=== PATIENT | female | born 1955 | race Caucasian/White ===

== ENCOUNTER → 2019-08-26 13:29 | Outpatient (CLI) | payer OTHER, SELFPAY ==
[2019-08-05 08:32] VITALS: BMI 30.5
[2019-09-03 10:03] LABS: Hematocrit 43.9 % (37-47); Hemoglobin 14.1 g/dL (12.0-15.0); Mean Corp Hgb Conc 32.1 g/dL (32-36); Mean Corpuscular Hgb 26.3 pg (27.0-32.0); Mean Corpuscular Volume 81.9 fL (81-99); Mean Platelet Vol. 8.8 fl (6.2-12.0); Platelet Count 302 K/mm3 (150-450); RBC Distribution Width SD 38.6 fl (35.1-43.9); Red Blood Count 5.36 M/mm3 (4.2-5.4)
[2019-09-03 10:19] LABS: ALB/GLOB Ratio 1.1 RATIO (0.9-2.4); AST(SGOT) 22 U/L (15-37); Alanine Aminotransfer ALT/SGPT 37 U/L (13-56); Alkaline Phosphatase 65 U/L (45-117); Anion Gap 7 (5-15); BUN 14 mg/dL (7-18); BUN/Creat Ratio 17.5 RATIO (10-20); Calcium,Total 9.2 mg/dL (8.5-10.1); Chloride 106 mmol/L (98-107); EST Glomerular Filtration Rate 77 mL/min (>60); Est Glom Filt Rate - Afr Amer 93 mL/min (>60); Globulin 3.7 g/dL (2.2-4.2); Glucose 117 mg/dL (74-106); Protein, Total 7.7 g/dL (6.4-8.2); Sodium Level 138 mmol/L (136-145)
== END ==
LOC: PAVLAB 13:30 → CVS 13:48
PROVIDERS: PCP Student in an Organized Health Care Education/Training Program; Referring Provider Obstetrics & Gynecology; Visit Provider Obstetrics & Gynecology
DX: R69 Illness, unspecified (principal)
CPT/HCPCS: 36415; 80053; 85027; 86850; 86900; 86901

== ENCOUNTER → 2019-09-03 15:00 | Outpatient (CLI) | payer OTHER, SELFPAY ==
[2019-08-05 08:32] VITALS: BMI 30.5
--- NOTE | 2019-08-26 13:50 | EKG12_ITS ---
Test Reason : PRE OP Blood Pressure : / mmHG Vent. Rate : 092 BPM Atrial Rate : 092 BPM P-R Int : 156 ms QRS Dur : 066 ms QT Int : 358 ms P-R-T Axes : 000 022 039 degrees QTc Int : 442 ms Normal sinus rhythm Septal infarct (cited on or before 05-MAR-2015) Abnormal ECG Confirmed by JULISA WHITMORE, LOIDA ([id number]), school photograph editor YAYA SOTO ([id number]) on 08/28/2019 1:12:53 PM Referred By: Kenya Wiggins Confirmed By:LOIDA EGAN MD
[2019-09-03 16:51] LABS: Thyroid Stim Hormone (TSH) 0.59 uIU/mL (0.358-3.74)
== END ==
LOC: PAT 10-02 11:11
PROVIDERS: Anesthesiology; PCP Student in an Organized Health Care Education/Training Program; Referring Provider Obstetrics & Gynecology; Visit Provider Obstetrics & Gynecology
DX: Z01.818 Encounter for other preprocedural examination (principal)
CPT/HCPCS: 84443; 93005

== ENCOUNTER 2023-04-06 05:39 | Observation (INO) | payer OTHER, MEDICARE, SELFPAY ==
[2023-04-06] VITALS (27 sets, daily range): BP systolic 90–193; BP diastolic 59–119; PULSE 67–126; RESP 14–20; TEMP 36.4–36.9; O2SAT 94–99; BMI 30.6; BMI 30.7
--- NOTE | 2023-04-06 06:00 | RAD_ITS ---
EXAM: XR CHEST, 1 VIEW CLINICAL INDICATION: chest pain TECHNIQUE: Frontal view of the chest. COMPARISON: Previous chest radiograph of report of 03/05/2015. FINDINGS: LUNGS AND PLEURAL SPACES: Unremarkable. No consolidation or edema. No pneumothorax. No effusion. HEART: Unremarkable. Cardiac silhouette not enlarged. Normal pulmonary vasculature. MEDIASTINUM: Central airways and mediastinal contour are unremarkable. No mediastinal widening. Trachea is midline. 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 Lower cervical degenerative changes. SOFT TISSUES: Unremarkable. RAD/Chest 1 View (Portable) IMPRESSION: No radiographic evidence of acute cardiopulmonary disease. Electronically Signed: Marco A Zhong MD at 6:55 EDT ,
--- NOTE | 2023-04-06 06:00 | EKG12_ITS ---
Test Reason : CP Blood Pressure : / mmHG Vent. Rate : 118 BPM Atrial Rate : 118 BPM P-R Int : 162 ms QRS Dur : 072 ms QT Int : 334 ms P-R-T Axes : 062 017 063 degrees QTc Int : 468 ms Sinus tachycardia Septal infarct (cited on or before 05-MAR-2015) Abnormal ECG Confirmed by JULISA WHITMORE, LOIDA ([id number]), supervising editor trailer YAYA SOTO ([id number]) on 04/10/2023 2:16:11 PM Referred By: BB Confirmed By:LOIDA EGAN MD
--- NOTE | 2023-04-06 06:00 | ED.VIS.CHEST ---
HPI History of Present Illness Chief Complaint: Chest Pain Informant: patient and spouse/S.O. Narrative Narrative: Patient woke up about 30 minutes prior to arrival without any symptoms and then suddenly shortly afterwards started having severe crushing pressure substernal chest pain without radiation, never had this before, no known history of heart disease. She feels dyspnea, she feels like her heart is racing a little bit and feels a little lightheaded, no nausea, vomiting, diaphoresis, or syncope/presyncope. She states it is severe and prior to getting here she felt like she was going to . Father had heart disease prior to the age of 55, and several other family members on his side of the family with heart disease. Patient's daughter has congestive heart failure for some reason. She is non-smoker and never had been. She states periodically every so often when she is exerting herself she gets chest discomfort and has to rest and then it goes away. She rarely seeks care when this occurs, but because of having intermittent chest discomfort she has been seeing cardiology at [facility]. CVD Risk Factors: Positive for Hypertension (Diet-treated) and Family History 1' </=55; Negative for Diabetes, Hypercholesterolemia or Smoking PE Risk Factors: Negative for Recent Travel/Surgery, Recent Immobilization or Prior DVT or PE [facility] Medical History (Updated 04/06/23 @ 08:[address] Philip Wilkins MD) Anxiety Arthritis Bladder incontinence Bladder prolapse Genital herpes Hyperlipidemia Hypothyroidism Seasonal allergies Home Medications estradiol 0.5 mg tablet 0.5 mg PO DAILY 12/09/13 [History Last Taken Unknown] medroxyprogesterone 2.5 mg tablet 2.5 mg PO DAILY 12/09/13 [History Last Taken Unknown] rosuvastatin 5 mg tablet 5 mg PO DAILY 12/09/13 [History Last Taken 04/05/23] Synthroid 88 mcg PO DAILY 08/05/19 [History Last Taken 04/05/23] acyclovir 200 mg capsule 200 mg PO TID PRN PRN 08/05/19 [History Last Taken Unknown] acyclovir 5 % topical ointment (Zovirax) 1 applic topical 6XD PRN PRN 08/05/19 [History Last Taken Unknown] celecoxib 200 mg capsule (Celebrex) 200 mg PO BID PRN Pain Or Fever 08/05/19 [History Last Taken Unknown] ibuprofen 800 mg tablet 800 mg PO Q8H PRN Pain Or Fever 08/05/19 [History Last Taken Unknown] alprazolam 0.25 mg tablet 0.25 mg PO QHS PRN sleep 04/06/23 [History Last Taken 04/05/23] azelastine 137 mcg (0.1 %) nasal spray aerosol 1 spray intranasal Q12H 04/06/23 [History Last Taken 04/05/23] epinephrine 0.3 mg/0.3 mL injection, auto-injector 0.3 mg IM Q1H PRN anaphylaxis 04/06/23 [History Last Taken Unknown] Allergy/AdvReac Type Severity Reaction Status Date / Time No Known Allergies Allergy Verified 04/06/23 06:51 Family History (Updated 08/05/19 @ 08:29 by Dipti Echavarria) Father Heart disease Prostate cancer Surgical History History of bladder suspension procedure S/P cholecystectomy S/P sinus surgery S/P tubal ligation Status post breast reduction Social History Smoking Status: Never smoker alcohol intake: current details: occasionally substance use type: does not use caffeine: Yes what type of physical activity do you participate in: walking additional social history: -Mike MOYER JOÃO ED Constitutional Constitutional ED: Denies chills or fever(s) Eyes Eyes: Denies change in vision or diplopia ENT ENT ED: Denies rhinorrhea or sore throat Cardiovascular Cardiovascular: Reports chest pain and racing heartbeat; Denies palpitations or radiating jaw, neck or arm pain Respiratory/Chest Respiratory/Chest: Reports dyspnea; Denies cough Gastrointestinal Gastrointestinal: Denies abdominal pain, diarrhea, nausea or vomiting Genitourinary Genitourinary ED: Denies dysuria or hematuria Musculoskeletal Musculoskeletal: Denies back pain or neck pain Integumentary Denies abscess or rash Neurologic Neurologic: Denies headache(s), paresthesias or weakness Psychiatric Psychiatric: Reports anxiety; Denies suicidal thoughts EXAM Physical Exam Const Vital Signs: 04/06/23 05:40 04/06/23 05:52 04/06/23 06:18 Temperature 97.5 F L Temperature Source Temporal Pulse Rate 126 H 104 H Respiratory Rate 19 H Respiratory Effort Short of Breath Blood Pressure 193/107 H 130/119 H Blood Pressure Mean 135 Pulse Ox 98 Oxygen Delivery Method Room Air 04/06/23 06:00 04/06/23 06:39 04/06/23 06:40 Temperature Temperature Source Pulse Rate 85 83 Respiratory Rate 19 H Respiratory Effort Blood Pressure 149/89 H 149/89 H Blood Pressure Mean 109 Pulse Ox 96 98 Oxygen Delivery Method Room Air Room Air 04/06/23 06:59 04/06/23 06:59 04/06/23 07:19 Temperature Temperature Source Pulse Rate 82 81 74 Respiratory Rate 17 17 Respiratory Effort Blood Pressure 115/82 H 115/82 H 115/82 H Blood Pressure Mean 93 93 Pulse Ox 97 97 Oxygen Delivery Method Room Air Room Air 04/06/23 08:26 04/06/23 09:09 04/06/23 09:29 Temperature Temperature Source Pulse Rate 82 95 77 Respiratory Rate 19 H 18 Respiratory Effort Blood Pressure 143/116 H 117/65 90/81 H Blood Pressure Mean 125 82 84 Pulse Ox 95 95 Oxygen Delivery Method Room Air Positive well nourished and well developed General Appearance ED: well developed and NAD HEENT Reports moist mucous membranes normocephalic and atraumatic Eyes PERRL and EOMs intact bilaterally Neck full ROM and supple Resp normal respiratory effort and clear to auscultation bilaterally Cardio regular rate, regular rhythm and no murmurs Rate: tachycardic GI non-tender and non-distended Auscultation: normoactive bowel sounds Palpation: soft Back/Spine no CVA tenderness General Back: other FROM Extremity normal to inspection General Extremety ED: Negative for edema, pulses abnormal or tenderness General Extremity: Negative for edema or pulses abnormal Neuro oriented x3, CN's II-XII intact bilaterally and no sensory deficits noted Sensorium / Orientation: awake and alert Motor Exam: strength 5/5 throughout Psych Mood & Affect: anxious and tearful Skin no rashes or lesions noted and no wounds Heart Score History: Highly Suspicious ECG: Significant ST-Depression Age: >/= 65 years Risk Factors: 1 or 2 Risk Factors Troponin: </= Normal Limit Score: 7 MDM MDM MDM Narrative Medical decision making narrative: Patient appears to be in a lot of discomfort and her symptoms are indeed concerning although upper GI etiologies are in the differential as are cardiac. Her EKG does look somewhat concerning, I believe there are some subtle ST depressions laterally these are new for her, and her BP is very high at 193/107. Her initial troponin came back at only 4, however this was soon after she arrived with all of this discomfort. She was initially given aspirin 324 mg in addition to nitroglycerin x2 but the nitroglycerin did not help her pain at all. This was followed by morphine, Zofran, and a GI cocktail to see if that would help while we were waiting for the second troponin. It helped a little, but she still had significant discomfort so was started on a nitroglycerin drip, and after being on that for about 10-15 minutes, her discomfort is much better down to a 1-2. Repeat EKG shows resolution of the lateral ST depressions. Her second troponin returned at 6 for a nonspecific delta of only 2. Although this argues against acute myocardial damage, I am concerned that the patient is having unstable angina, and her HEART score is 7. Discussed with hospitalist, Cardiology on page. Lab Data Attestation: I reviewed the patient's lab results. Labs: Laboratory Results - last 24 hr 04/06/23 04/06/23 05:50 07:57 WBC 8.4 RBC 5.53 H Hgb 14.6 Hct 45.6 MCV 82.5 MCH 26.4 L MCHC 32.0 RDW Std Deviation 38.6 RDW Coeff of Greg 12.8 Plt Count 378 MPV 8.9 Immature Gran % (Auto) 0.200 Neut % (Auto) 46.6 L Lymph % (Auto) 40.6 [place] % (Auto) 9.7 Eos % (Auto) 2.4 Baso % (Auto) 0.5 Absolute Neuts (auto) 3.9 Absolute Lymphs (auto) 3.40 Nucleated RBC % 0 Sodium 138 Potassium 3.8 Chloride 107 Carbon Dioxide 26.0 Anion Gap 5 BUN 10 Creatinine 0.92 Estim Creat Clear Calc 49.09 Est GFR (MDRD) Af Amer 79 Est GFR (MDRD) Non-Af 65 BUN/Creatinine Ratio 10.9 Glucose 125 H Calcium 9.6 Troponin I High Sens 4 6 Radiography Chest X-Ray - ED: 1 View, Read by ED Physician, No Acute Disease, No Infiltrates and - (narrow mediastinum) Diagnostic Testing: Clinical Impression(s) from Imaging Studies Chest X-Ray 04/06/23 06:00 IMPRESSION: No radiographic evidence of acute cardiopulmonary disease. Electronically Signed: Marco A Zhong MD at 6:55 EDT , Rhythm Strip Rhythm Strip: Sinus Tach Rate: 115 Ectopy: None EKG Initial EKG: Attestation: I personally reviewed and interpreted this EKG as follows: Interpretation: No Acute Injury Pattern, Sinus Tachycardia and Non-Specific ST Changes (With possibly less than [address] depression in V3-6, no reciprocal changes) Prior EKG tracings: available for review Prior: Changed Follow-up EKG: Attestation: I personally reviewed and interpreted this EKG as follows: Interpretation: Sinus Rhythm and No Acute Injury Pattern Comments: resolution of lateral ST abn Management Discussion w/another healthcare provider: Hospitalist and Master Automotive Glass Technician (cardiology Dr. Arias) Critical Care Time Critical Care Time: Yes Critical care time (excluding procedures): 30-74 minutes (45 min), Including time spent:, Discussing w/Patient &/or Family/Tightening Machine Operator, Discussing w/Consultants, Arranging Admission or Transfer and Performing Direct Patient Care at Bedside Discharge Plan Triage Chief Complaint: Chest Pain ED Provider: Philip Wilkins Dx/Rx/DC Orders Clinical Impression: Unstable angina Prescriptions: No Action celecoxib [Celebrex] 200 mg capsule 200 mg PO BID PRN (Reason: Pain Or Fever) acyclovir 200 mg capsule 200 mg PO TID PRN (Reason: PRN) acyclovir [Zovirax] 5 % ointment 1 applic TOPICAL 6XD PRN (Reason: PRN) ibuprofen 800 mg tablet 800 mg PO Q8H PRN (Reason: Pain Or Fever) Synthroid 75 MCG tablet 88 mcg PO DAILY Patient Comments: THYROID COND. medroxyprogesterone 2.5 MG tablet 2.5 mg PO DAILY Hold Instructions: Ordered estradiol 0.5 MG tablet 0.5 mg PO DAILY Hold Instructions: Ordered rosuvastatin 5 MG tablet 5 mg PO DAILY epinephrine 0.3 mg/0.3 mL auto-injector 0.3 mg IM Q1H PRN (Reason: anaphylaxis) azelastine 137 mcg (0.1 %) aerosol,spray 1 spray INTRANASAL Q12H alprazolam 0.25 mg tablet 0.25 mg PO QHS PRN (Reason: sleep) Primary Care Provider: Mark Vergara Referrals: Mark Vergara DO [Primary Care Provider] -
[2023-04-06 06:08] LABS: Absolute Neutrophil Count 3.9 X10^3/uL (2.0-7.7); Basophil# 0.04 X10^3/uL; Basophil% 0.5 % (0-1); Eosinophils% 2.4 % (0-5); Hematocrit 45.6 % (37-47); Hemoglobin 14.6 g/dL (12.0-15.0); Lymphocyte % 40.6 % (19-41); Mean Corpuscular Hgb 26.4 pg (27.0-32.0); Mean Corpuscular Volume 82.5 fL (81-99); Mean Platelet Vol. 8.9 fl (6.2-12.0); Monocyte# 0.81 X10^3/uL; Monocyte% 9.7 % (0-10); NRBC Flagged by Analyzer 0 % (0-5); Neutrophil % 46.6 % (47-70); Platelet Count 378 K/mm3 (150-450); RBC Distribution Width CV 12.8 % (11.6-14.6); RBC Distribution Width SD 38.6 fl (35.1-43.9); Red Blood Count 5.53 M/mm3 (4.2-5.4); White Blood Count 8.4 K/mm3 (4.4-11.0)
[2023-04-06] MEDS: Aspirin 81 MG TAB.CHEW 324 MG PO (06:15)
[2023-04-06] MEDS: 0.9% Normal Saline (1000mL) 1,000 ML 1000 ML IV (06:17)
[2023-04-06] MEDS: Nitroglycerin SL (ED/IMG/CATH) 0.4 MG TABLET SL ×3 (06:18→06:59)
[2023-04-06 06:39] LABS: Anion Gap 5 (5-15); BUN 10 mg/dL (7-18); BUN/Creat Ratio 10.9 RATIO (10-20); Calcium,Total 9.6 mg/dL (8.5-10.1); Chloride 107 mmol/L (98-107); Creatinine, Serum 0.92 mg/dL (0.55-1.02); EST Glomerular Filtration Rate 65 mL/min (>60); Est Glom Filt Rate - Afr Amer 79 mL/min (>60); Estimated Creatinine Clearance 49.09 ml/min; Glucose 125 mg/dL (74-106); Potassium 3.8 mmol/L (3.5-5.1); Sodium Level 138 mmol/L (136-145); Troponin-I HS (w/2H Reflex) 4 pg/mL (3.0-54.0)
[2023-04-06] MEDS: Morphine 4 MG/ML Syringe IV (07:14)
[2023-04-06] MEDS: Ondansetron 4 MG/2 ML Vial IV (07:14)
[2023-04-06] MEDS: Mag Hydrox/Al Hydrox/Simeth 30 ML UDC PO (07:15)
[2023-04-06 08:06] LABS: Reflex Troponin-HS? (from REC) Y
--- NOTE | 2023-04-06 08:07 | EKG12_ITS ---
Test Reason : REPEAT Blood Pressure : / mmHG Vent. Rate : 069 BPM Atrial Rate : 069 BPM P-R Int : 144 ms QRS Dur : 070 ms QT Int : 432 ms P-R-T Axes : -29 015 037 degrees QTc Int : 462 ms Normal sinus rhythm Normal ECG Confirmed by JULISA WHITMORE, LOIDA ([id number]), city editor YAYA SOTO ([id number]) on 04/10/2023 2:16:40 PM Referred By: Confirmed By:LOIDA EGAN MD
[2023-04-06] MEDS: Nitroglycerin Infusion 250 ML 3 MG CONT INF (08:26)
[2023-04-06] MEDS: Metoclopramide 10 MG/2 ML Vial 5 MG IV (08:27)
[2023-04-06] MEDS: Morphine 2 MG/ML Syringe IV (08:27)
[2023-04-06 08:37] LABS: Troponin-I HS 6 pg/mL (3.0-54.0)
--- NOTE | 2023-04-06 09:48 | PCM.HP.STD ---
HPI - General General Date of Admission: 04/06/23 Date of Service: 04/06/23 Chief Complaint: Chest pain HPI Narrative JIE AJCKSON, is a 68y/o female w/ hx of hypothyroidism and incomplete uterovaginal prolapse presented to [facility] 04/06/2023 with crushing substernal chest heaviness and blood pressure 190s. Her troponin was negative however she had lateral depressions on her EKG and her pain and EKG changes improved with a nitro drip. Heart score of 7 and she is continued on nitro drip and started on heparin drip and given a full dose aspirin and hospitalist called for admission. Patient seen at bedside with , reportedly she got up this morning and if she began to walk to the bathroom she experienced 10 out of 10 chest pressure across the front of her chest prompting her to immediately come to the ED, did not radiate anywhere else. Reports she does occasionally get chest pain on exertion and described it as her anginal pain but reportedly had a stress test about a year ago that was negative and her last heart cath was about 10 years ago. Her pain improved to a 2 after nitro drip was started. Reports leaning forward/sitting up sometimes makes her pain worse right now but denies other association. Before the nitro drip she was feeling nauseous and had 1 episode of vomiting and has been short of breath. Reports overall she has been in her usual health but then did say she has been having more gas and heartburn. Denies any swelling, at present not short of breath and feeling much better while nitro drip is running. [facility] Medical History (Updated 04/06/23 @ 09:[address] Nataliya Jin MD) Anxiety Arthritis Bladder incontinence Bladder prolapse Genital herpes Hyperlipidemia Hypothyroidism Seasonal allergies Home Medications estradiol 0.5 mg tablet 0.5 mg PO DAILY 12/09/13 [History Last Taken Unknown] medroxyprogesterone 2.5 mg tablet 2.5 mg PO DAILY 12/09/13 [History Last Taken Unknown] rosuvastatin 5 mg tablet 5 mg PO DAILY 12/09/13 [History Last Taken 04/05/23] Synthroid 88 mcg PO DAILY 08/05/19 [History Last Taken 04/05/23] acyclovir 200 mg capsule 200 mg PO TID PRN PRN 08/05/19 [History Last Taken Unknown] acyclovir 5 % topical ointment (Zovirax) 1 applic topical 6XD PRN PRN 08/05/19 [History Last Taken Unknown] celecoxib 200 mg capsule (Celebrex) 200 mg PO BID PRN Pain Or Fever 08/05/19 [History Last Taken Unknown] ibuprofen 800 mg tablet 800 mg PO Q8H PRN Pain Or Fever 08/05/19 [History Last Taken Unknown] alprazolam 0.25 mg tablet 0.25 mg PO QHS PRN sleep 04/06/23 [History Last Taken 04/05/23] azelastine 137 mcg (0.1 %) nasal spray aerosol 1 spray intranasal Q12H 04/06/23 [History Last Taken 04/05/23] epinephrine 0.3 mg/0.3 mL injection, auto-injector 0.3 mg IM Q1H PRN anaphylaxis 04/06/23 [History Last Taken Unknown] Allergy/AdvReac Type Severity Reaction Status Date / Time No Known Allergies Allergy Verified 04/06/23 06:51 Family History (Updated 08/05/19 @ 08:29 by Dipti Echavarria) Father Heart disease Prostate cancer Surgical History History of bladder suspension procedure S/P cholecystectomy S/P sinus surgery S/P tubal ligation Status post breast reduction Social History Smoking Status: Never smoker alcohol intake: current details: occasionally substance use type: does not use caffeine: Yes what type of physical activity do you participate in: walking additional social history: -Mike JOÃO MOYER Narrative General: Denies fever/chills HENT: Denies headache, denies stuffy nose, denies sore throat EYES: Denies changes in vision Resp: Denies cough, shortness of breath improved Cardiac: Substernal chest pressure improving GI: Denies abdominal pain, denies changes in bowel, had episode of vomiting and some nausea which is improving : Denies changes in urination Extremity: Denies swelling MSK: Denies weakness Neuro: Denies any numbness/tingling Heme: Denies any bleeding or bruising Skin: Denies rashes Psychiatric: No complaints voiced Vital Signs Vital Signs Vital Signs: 04/06/23 05:40 04/06/23 05:52 04/06/23 06:18 Temperature 97.5 F L Temperature Source Temporal Pulse Rate 126 H 104 H Respiratory Rate 19 H Respiratory Effort Short of Breath Blood Pressure 193/107 H 130/119 H Blood Pressure Mean 135 Pulse Ox 98 Oxygen Delivery Method Room Air 04/06/23 06:00 04/06/23 06:39 04/06/23 06:40 Temperature Temperature Source Pulse Rate 85 83 Respiratory Rate 19 H Respiratory Effort Blood Pressure 149/89 H 149/89 H Blood Pressure Mean 109 Pulse Ox 96 98 Oxygen Delivery Method Room Air Room Air 04/06/23 06:59 04/06/23 06:59 04/06/23 07:19 Temperature Temperature Source Pulse Rate 82 81 74 Respiratory Rate 17 17 Respiratory Effort Blood Pressure 115/82 H 115/82 H 115/82 H Blood Pressure Mean 93 93 Pulse Ox 97 97 Oxygen Delivery Method Room Air Room Air 04/06/23 08:26 04/06/23 09:09 04/06/23 09:29 Temperature Temperature Source Pulse Rate 82 95 77 Respiratory Rate 19 H 18 Respiratory Effort Blood Pressure 143/116 H 117/65 90/81 H Blood Pressure Mean 125 82 84 Pulse Ox 95 95 Oxygen Delivery Method Room Air Weight Weight: 78.4 kg Body Mass Index (BMI) 30.6 Physical Exam Narrative General: Alert, oriented, no apparent distress HEENT: Atraumatic, normocephalic Eyes: Anicteric, normal conjunctiva, extraocular movements grossly intact Neck: Supple Respiratory: Clear to auscultation bilaterally, normal respiratory effort Cardiovascular: Regular rate and rhythm GI: Soft, nontender, nondistended Extremities: No edema Musculoskeletal: Moving all extremities Neuro: No overt focal neurological deficits Skin: No rashes appreciated Psych: Cooperative Results Lab / Micro Data 04/06/23 05:50 04/06/23 05:50 Labs: Laboratory Results - last 24 hr 04/06/23 05:50: WBC 8.4, RBC 5.53 H, Hgb 14.6, Hct 45.6, MCV 82.5, MCH 26.4 L, MCHC 32.0, RDW Std Deviation 38.6, RDW Coeff of Greg 12.8, Plt Count 378, MPV 8.9, Immature Gran % (Auto) 0.200, Neut % (Auto) 46.6 L, Lymph % (Auto) 40.6, [place]cculloch % (Auto) 9.7, Eos % (Auto) 2.4, Baso % (Auto) 0.5, Absolute Neuts (auto) 3.9, Absolute Lymphs (auto) 3.40, Nucleated RBC % 0, Sodium 138, Potassium 3.8, Chloride 107, Carbon Dioxide 26.0, Anion Gap 5, BUN 10, Creatinine 0.92, Estim Creat Clear Calc 49.09, Est GFR (MDRD) Af Amer 79, Est GFR (MDRD) Non-Af 65, BUN/Creatinine Ratio 10.9, Glucose 125 H, Calcium 9.6, Troponin I High Sens 4 04/06/23 07:57: Troponin I High Sens 6 Rhythm Strip Rhythm Strip: Sinus Tach Rate: 115 Ectopy: None Radiology Impression Chest X-Ray 04/06/23 06:00 IMPRESSION: No radiographic evidence of acute cardiopulmonary disease. Electronically Signed: Marco A Zhong MD at 6:55 EDT , Assessment & Plan Assessment/Plan (1) Chest pain: (2) Hypothyroidism: PLAN: Plan #Concern for unstable angina -Had EKG changes with depressions though troponin of 4 and repeat only 6 -Heart score of 7 -Chest pain and EKG changes improved significantly with nitro drip -Started on heparin drip -Continue nitro and heparin and consult cardiology -Patient already loaded with aspirin -N.p.o. in the event she needs intervention -Order echocardiogram -Discussed with cardiology, patient to go to Spinal Surgeon #Hypothyroidism -Continue Synthroid #DVT ppx: Heparin drip Nataliya Jin MD Time spent in the patient's overall evaluation,decision-making process, review of diagnostic data, adjustment of management, discussion with other providers, nursing nursing and ancillary staff involved in patient's care documentation, 60 Minutes Charges/Coding Visit Charges Inpatient E&M: 74796 Init Hosp L2
--- NOTE | 2023-04-06 09:59 | ED.RN ---
As heparin was about to be started, this RN saw an order from Dr. Arias to discontinue anticoagulants but the order gives no detail about what time to stop it. Dr. Jin contact via backline to clarify order.
[2023-04-06 10:03] LABS: International Normalized Ratio 1.2; Partial Thromboplast Time 23.5 Seconds (24.1-36.2); Prothrombin Time (Protime)PT. 14.8 SECONDS (11.7-14.9)
[2023-04-06] MEDS: 0.9% Normal Saline (500mL Bag) 500 ML 999 ML IV (10:05)
--- NOTE | 2023-04-06 10:31 | CASEMGMT ---
Insurance review for hospitals In-network with MMO insurance if transfer is recommended is as follows:. [facility], [place], [facility], [facility], [facility], [facility], [facility]), and . Flavia Hawkins, Discharge Planning Asst.
--- NOTE | 2023-04-06 10:44 | ECHOD_ITS ---
Reason For Study: CHEST PAIN Procedure This was a 2D Doppler, Color Flow transthoracic echocardiogram. Exam performed portable in patient room. Left Ventricle Normal left ventricle. Left ventricular systolic function is hyperdynamic. The estimated ejection fraction is 70 %. No regional wall motion abnormalities noted. Right Ventricle Normal RV size. Normal systolic function. Atria Normal left atrium. Normal right atrium. Mitral Valve Normal mitral valve. Tricuspid Valve Normal tricuspid valve. Aortic Valve Normal aortic valve. Trisinus/trileaflet aortic valve. Pulmonic Valve Normal pulmonic valve. Great Vessels Normal aortic root. The pulmonary artery is normal size. Normal inferior vena cava. Pericardium/Pleural No pericardial effusion. MMode/2D Measurements & Calculations LVIDd: 3.8 cm IVSd: 1.0 cm Ao root diam: 3.1 cm LVIDs: 2.2 cm LVPWd: 1.5 cm FS: 42.4 % LAV(MOD-sp4): 35.6 ml LVAd ap4: 23.0 cm2 SV(MOD-sp4): 40.4 ml LVLd ap4: 7.0 cm EDV(MOD-sp4): 62.5 ml EDV(sp4-el): 64.8 ml LVAs ap4: 11.7 cm2 LVLs ap4: 5.8 cm ESV(MOD-sp4): 22.1 ml ESV(sp4-el): 20.2 ml EF(MOD-sp4): 64.7 % EF(sp4-el): 68.9 % SV(sp4-el): 44.7 ml LA A4 area: 15.0 cm2 LA dimension(2D): 2.4 cm RA A4 area: 10.1 cm2 TAPSE: 2.6 cm Time Measurements MV dec time: 0.26 sec Doppler Measurements & Calculations MV E max mateus: 70.4 cm/sec Lat Peak E' Mateus: 8.5 cm/sec Med Peak E' Mateus: 7.2 cm/sec MV A max mateus: 66.1 cm/sec E/E' lat: 8.3 E/E' med: 9.8 MV E/A: 1.1 MV V2 max: 103.9 cm/sec Ao V2 max: 105.9 cm/sec MV max P.3 mmHg MV dec slope: 266.9 cm/sec2 Ao max P.5 mmHg MV V2 mean: 68.3 cm/sec Ao V2 mean: 79.3 cm/sec MV mean P.0 mmHg Ao mean P.8 mmHg MV V2 VTI: 31.4 cm Ao V2 VTI: 27.7 cm AV (velocity ratio): 0.88 LV V1 max: 92.8 cm/sec LV V1 max P.4 mmHg LV V1 mean P.0 mmHg LV V1 mean: 68.7 cm/sec LV V1 VTI: 24.4 cm ECHO/Echo Complete Interpretation Summary Normal left ventricle. Left ventricular systolic function is hyperdynamic. The estimated ejection fraction is 70 %. Structurally normal valves. Ordering Physician: Nataliya Jin Referring Physician: ERICA STRONG Performed By: Mary Gutierrez RCS
--- NOTE | 2023-04-06 13:35 | CON.PCM.CA_ITS ---
Assessment & Plan Assessment/Plan (1) Chest pain: PLAN: She presents with chest discomfort which appears to be suggestive of angina. At this time I recommended that we perform an urgent cardiac catheterization. The risk benefits alternatives were explained to her and she agreed at to proceed. Cardiac catheterization performed today demonstrated normal coronary arteries and preserved left ventricular systolic function. It appears the above was likely secondary to elevated blood pressure. I would recommend starting her on amlodipine 5 mg a day she will follow-up with her primary care physician and this can be titrated as appropriate. (2) HTN (hypertension), benign: PLAN: She has uncontrolled hypertension. I would recommend we continue her on the current medical therapy as started. Thank you for allowing me to participate in the care of your patient. Please don't hesitate to call if any issues arise. HPI Consult Data Date of Consult: 04/06/23 HPI Narrative HPI Narrative: SHANTELL JACKSON, is a 68 F who presents with chest discomfort to [facility] 04/06/2023 with crushing substernal chest heaviness and blood pressure 190s. Her troponin was negative however she had lateral depressions on her EKG and her pain and EKG changes improved with a nitro drip. She said that she had just woken from bed and stepped out and started having this discomfort. She also had some nausea and vomiting and then heartburn. She has had a previous cholecystectomy. She has had no dizziness or diaphoresis no near syncope or syncope. In the emergency room she was evaluated cardiac troponin enzymes were noted to be normal but it was felt that with her elevated heart score she should be admitted for further evaluation and management. Cardiology was called for further evaluation. [facility] Medical History (Updated 04/06/23 @ 13:[address] Omero Arias MD) Anxiety Arthritis Bladder incontinence Bladder prolapse Genital herpes Hyperlipidemia Hypothyroidism Seasonal allergies Home Medications estradiol 0.5 mg tablet 0.5 mg PO DAILY 12/09/13 [History Last Taken Unknown] medroxyprogesterone 2.5 mg tablet 2.5 mg PO DAILY 12/09/13 [History Last Taken Unknown] rosuvastatin 5 mg tablet 5 mg PO DAILY 12/09/13 [History Last Taken 04/05/23] Synthroid 88 mcg PO DAILY 08/05/19 [History Last Taken 04/05/23] acyclovir 200 mg capsule 200 mg PO TID PRN PRN 08/05/19 [History Last Taken Unknown] acyclovir 5 % topical ointment (Zovirax) 1 applic topical 6XD PRN PRN 08/05/19 [History Last Taken Unknown] celecoxib 200 mg capsule (Celebrex) 200 mg PO BID PRN Pain Or Fever 08/05/19 [History Last Taken Unknown] ibuprofen 800 mg tablet 800 mg PO Q8H PRN Pain Or Fever 08/05/19 [History Last Taken Unknown] alprazolam 0.25 mg tablet 0.25 mg PO QHS PRN sleep 04/06/23 [History Last Taken 04/05/23] azelastine 137 mcg (0.1 %) nasal spray aerosol 1 spray intranasal Q12H 04/06/23 [History Last Taken 04/05/23] epinephrine 0.3 mg/0.3 mL injection, auto-injector 0.3 mg IM Q1H PRN anaphylaxis 04/06/23 [History Last Taken Unknown] Allergy/AdvReac Type Severity Reaction Status Date / Time No Known Allergies Allergy Verified 04/06/23 06:51 Family History Father Heart disease Prostate cancer Surgical History History of bladder suspension procedure S/P cholecystectomy S/P sinus surgery S/P tubal ligation Status post breast reduction Social History Smoking Status: Never smoker alcohol intake: current details: occasionally substance use type: does not use caffeine: Yes what type of physical activity do you participate in: walking additional social history: -Mike ROS Constitutional Constitutional: Denies fever(s) or weight loss Eyes Eyes: Reports systems reviewed and no addt'l complaints, except as documented ENT HEENT: Reports systems reviewed and no addt'l complaints, except as documented Cardiovascular Cardiovascular: Denies chest pain at rest, chest pain with activity, dyspnea at rest, dyspnea on exertion, edema, palpitations or paroxysmal nocturnal dyspnea Respiratory/Chest Respiratory/Chest: Denies dyspnea on exertion, productive cough, shortness of breath at rest or shortness of breath with exertion Gastrointestinal Gastrointestinal: Denies change in bowel habits, nausea, vomiting or weight changes Genitourinary Genitourinary: Denies difficulty urinating Musculoskeletal Musculoskeletal: Denies joint stiffness or muscle weakness Integumentary Integumentary: Denies lesions Neurologic Neurologic: Denies dizziness or syncope Psychiatric Psychiatric: Denies anxiety Endocrine Endocrinology: Denies excessive sweating or fatigue Hematologic/Lymphatic Hematologic/Lymphatic: Denies anemia Allergic/Immunologic Allergic/Immunologic: Denies seasonal rhinorrhea Physical Exam Const alert, oriented x3 and no apparent distress General Appearance: cooperative HEENT hearing grossly normal bilaterally Head and Scalp: atraumatic Eyes EOMs intact bilaterally Neck General: normal visual inspection Chest inspection of chest normal and palpation of chest normal Resp normal respiratory effort Auscultation: clear to auscultation bilaterally Cardio regular rate, regular rhythm, S1 normal heart sound and S2 normal heart sound Jugular Venous Distention: JVD GI normal to inspection, nondistended, normoactive bowel sounds Extremity normal capillary refill and no pedal edema Peripheral Pulses: Yes pulses 2+ throughout and femoral pulses present Skin no rashes or lesions noted Neuro oriented x3 and CN's II-XII intact bilaterally Psych Appearance: grossly normal and appropriate Risk Stratification Risk Stratification Applicable: Yes Age >/= 65: Yes >/= 3 CAD Risk Factors (HTN, HLD, DM, family hx of CAD, or current smoker): No Aspirin Use in the Past 7 Days: No Severe Angina (>/= episodes in 24 hours): Yes EKG ST Changes >/= 0.5mm: No Positive Cardiac Marker: No LIAN Risk Stratification Score: 2 LIAN % Risk: 8% Risk Objective Data Vital Signs: Vital Signs Temp Pulse Resp BP Pulse Ox O2 Del Method 97.5 F L 80 20 H 123/69 H 96 Room Air 04/06/23 05:40 04/06/23 11:45 04/06/23 11:45 04/06/23 12:30 04/06/23 11:45 04/06/23 11:45 Oxygen Delivery Method Room Air Weight: 168 lb 3.403 oz Body Mass Index (BMI) 30.7 Intake & Output: Intake and Output for Last 24 Hours 04/04/23 04/05/23 04/06/23 23:59 23:59 23:59 Intake Total 1516.70 / 1516.70 Balance 1516.70 / 1516.70 Lab / Micro Data 04/06/23 05:50 04/06/23 05:50 Labs: Laboratory Results - last 24 hr 04/06/23 05:50: WBC 8.4, RBC 5.53 H, Hgb 14.6, Hct 45.6, MCV 82.5, MCH 26.4 L, MCHC 32.0, RDW Std Deviation 38.6, RDW Coeff of Greg 12.8, Plt Count 378, MPV 8.9, Immature Gran % (Auto) 0.200, Neut % (Auto) 46.6 L, Lymph % (Auto) 40.6, [place] % (Auto) 9.7, Eos % (Auto) 2.4, Baso % (Auto) 0.5, Absolute Neuts (auto) 3.9, Absolute Lymphs (auto) 3.40, Nucleated RBC % 0, Sodium 138, Potassium 3.8, Chloride 107, Carbon Dioxide 26.0, Anion Gap 5, BUN 10, Creatinine 0.92, Estim Creat Clear Calc 49.09, Est GFR (MDRD) Af Amer 79, Est GFR (MDRD) Non-Af 65, BUN/Creatinine Ratio 10.9, Glucose 125 H, Calcium 9.6, Troponin I High Sens 4 04/06/23 07:57: Troponin I High Sens 6 04/06/23 09:42: PT 14.8, INR 1.2, APTT 23.5 L Rhythm Strip Rhythm Strip: Sinus Tach Rate: 115 Ectopy: None Cardiology Labs/Tests 04/06/23 05:50: WBC 8.4, RBC 5.53 H, Hgb 14.6, Hct 45.6, MCV 82.5, MCH 26.4 L, MCHC 32.0, Plt Count 378, MPV 8.9, Immature Gran % (Auto) 0.200, Neut % (Auto) 46.6 L, Lymph % (Auto) 40.6, [place] % (Auto) 9.7, Eos % (Auto) 2.4, Baso % (Auto) 0.5, Absolute Neuts (auto) 3.9, Nucleated RBC % 0, Sodium 138, Potassium 3.8, Chloride 107, Carbon Dioxide 26.0, Anion Gap 5, BUN 10, Creatinine 0.92, Est GFR (MDRD) Af Amer 79, Est GFR (MDRD) Non-Af 65, BUN/Creatinine Ratio 10.9, Glucose 125 H, Calcium 9.6 04/06/23 09:42: PT 14.8, INR 1.2, APTT 23.5 L Rhythm: EKG: ECHO: Stress Test: Cardiac Cath: PCI: CT Surgery: Holter monitor: EPS: PPM: CXR: Chest CT Scan: Radiography Diagnostic Testing: Radiology Impression Chest X-Ray 04/06/23 06:00 IMPRESSION: No radiographic evidence of acute cardiopulmonary disease. Electronically Signed: Maroc A Zhong MD at 6:55 EDT ,
--- NOTE | 2023-04-06 14:19 | NURSING ---
Pt returned from [facility] at 1340 with nirto gtt off pt.
--- NOTE | 2023-04-06 14:53 | CT_ITS ---
HISTORY: Refractory 04/04 chest pain, r/o dissection or other. TECHNIQUE: CT angiogram of the chest was performed after the intravenous administration of 100 mL Isovue-370. Post-processing of the angiographic images was performed with multiplanar reformation and 3D reconstruction. Individualized dose optimization techniques were used for this CT. 1078 images. COMPARISON: XR same day. FINDINGS: CENTRAL AIRWAYS: Patent. LUNGS: 2 mm left lower lobe nodule. 4 mm pleural-based right lower lobe nodule. PLEURA: No pneumothorax or significant pleural effusion. HEART/PERICARDIUM: Heart within normal limits in size. No pericardial effusion. PULMONARY ARTERIES: No filling defect. AORTA/VESSELS: No thoracic aortic aneurysm or dissection flap. MEDIASTINUM/MINNIE: No pathologically enlarged lymph nodes. OSSEOUS STRUCTURES: Intact. UPPER ABDOMEN: Unremarkable. CT/CTA Chest W/WO Contrast IMPRESSION: No evidence of pulmonary embolism, aortic dissection, or thoracic aortic aneurysm. 2 to 4 mm lower lobe pulmonary nodules; consider 12 month follow-up depending on risk factors. Electronically Signed: Angle Duron MD at 15:41 EDT ,
[2023-04-06] MEDS: Pantoprazole Sodium 40 MG Tablet PO (15:03)
[2023-04-06] MEDS: amLODIPine 5 MG Tablet PO (15:03)
--- NOTE | 2023-04-06 16:03 | PCM.DC ---
Discharge Instructions Diet Discharge Diet: Light diet - advance as tolerated Follow Up Care Test Results: Test results from this visit will be discussed in further detail at your follow-up appointment, if applicable. Discharge Plan Admission Admit Date/Time: 04/06/23 10:11 Primary Reason for Your Visit: Chest pain Attending Provider: Nataliya Jin Primary Care Provider: Mark Vergara Consulting Providers: Omero Arias Instructions Patient Instructions: ED GERD (Adult) Additional Instructions / Restrictions: DISCHARGE INSTRUCTIONS PLEASE READ *Please take this with you to your next doctors appointment* -You will be discharged on Protonix 40 mg daily for acid reflux, please follow-up with your GI doctor on discharge -Recommend avoiding any aspirin, ibuprofen, other NSAIDs at this time as these can worsen reflux. -You will be discharged on 5 mg of Norvasc for blood pressure -Check your incisions every day for signs of infection which would include redness, swelling, leaking. It is normal to have a small bruise or bump where the catheter was placed but a bruise that is getting larger is not normal. Please tell your healthcare team about this. Please proceed to the emergency department if you have uncontrollable bleeding from the site. -Okay to shower from the day after your heart catheterization but keep your incision site clean and dry. -You are noted to have small lung nodules, your primary provider can consider a 12-month follow-up -Please call your primary care provider's office upon discharge to schedule a hospital follow up within 1 week. -For any concerning signs or symptoms please call 911 or proceed to the nearest emergency department Discharge Orders/Prescriptions Prescriptions: New amlodipine 5 mg Tablet 5 mg PO DAILY 30 Days Qty: 30 0RF pantoprazole 40 mg Tablet,Delayed Release (Dr/Ec) 40 mg PO DAILY 30 Days Qty: 30 0RF Continued acyclovir 200 mg capsule 200 mg PO TID PRN (Reason: PRN) acyclovir [Zovirax] 5 % ointment 1 applic TOPICAL 6XD PRN (Reason: PRN) Synthroid 75 MCG tablet 88 mcg PO DAILY Patient Comments: THYROID COND. rosuvastatin 5 MG tablet 5 mg PO DAILY epinephrine 0.3 mg/0.3 mL auto-injector 0.3 mg IM Q1H PRN (Reason: anaphylaxis) azelastine 137 mcg (0.1 %) aerosol,spray 1 spray INTRANASAL Q12H alprazolam 0.25 mg tablet 0.25 mg PO QHS PRN (Reason: sleep) Held celecoxib [Celebrex] 200 mg capsule 200 mg PO BID PRN (Reason: Pain Or Fever) Hold Instructions: Resume on 04/12/23. Discontinued ibuprofen 800 mg tablet 800 mg PO Q8H PRN (Reason: Pain Or Fever) medroxyprogesterone 2.5 MG tablet 2.5 mg PO DAILY Hold Instructions: MD Ordered estradiol 0.5 MG tablet 0.5 mg PO DAILY Hold Instructions: MD Ordered Referrals / Follow Up: Mark Vergara DO [Primary Care Provider] - Within 1 Week Disposition Disposition (needs filled in before D/C Order can be placed): Home, Self Care
--- NOTE | 2023-04-06 16:16 | PCM.HOSP.N ---
Hospitalist Note Patient was admitted for concern for unstable angina, underwent heart cath which did not reveal any lesions requiring intervention. Echocardiogram overall unremarkable, due to improved but continued chest pain she had CTA which was unrevealing. She is seen and reports she feels 100% better than this morning. Discussed that this may be esophageal in nature either GERD or spasm and she concurred. Has been told before after an upper endoscopy that she had GERD and took reflux medicine only as needed, discussed taking PPI daily and following up with her GI doctor and she was amenable to this plan as she is feeling much better. Has no other complaints, questions of patient and family members at bedside answered. Patient discharged home in stable condition
--- NOTE | 2023-04-06 16:42 | CL.D_ITS ---
Patient Name: SHANTELL JACKSON Study Date: 04/06/2023 Performing: Omero Arias MD Ht: 63 inches 160.02 cm : 1955 Wt: 168.4 lbs 76.3 kg Age: 68 Gender: female BSA: 1.8 PROCEDURE(S) PERFORMED [id number])LHC/COR/LV CLINICAL PROFILE AND INDICATIONS Indications: Suspected CAD Heart Failure: None Stress/Imaging Stress/Image Study Performed: No CONCLUSIONS Normal coronary arteries Normal LV size, wall motion,and systolic function RECOMMENDATIONS Medical therapy DESCRIPTION OF PROCEDURE The patient arrived to the procedure lab. The risks and benefits of the procedure as well as a full description of our services here and current unavailability of surgical backup were fully explained to the patient and/or their significant other prior to the catheterization. The Timeout was completed, verifying the correct patient and procedure. The patient's procedural site was prepped and draped in the usual fashion. Local anesthetic was given subcutaneously to right radial region with Lidocaine 2%. Using a modified Seldinger technique, arterial access was obtained via the right radial artery, a 6Fr sheath was inserted. Left Coronary Artery selective angiography was performed in multiple views using a 5 Fr. 4.0 [place] catheter. Right Coronary Artery selective angiography was then performed in multiple views using a 5 Fr. 4.0 [place] catheter. Left Ventriculography was performed in TREVINO projection using a 5 Fr. Pigtail catheter. LV to AO pullback pressures were then recorded.The arterial sheath was pulled and a TR Band was applied for hemostasis CORONARY ANGIOGRAPHY DOMINANCE: Right Dominant LEFT HEART ASSESSMENT Left Ventricular Ejection Fraction: by LV Gram 60 % Normal LV wall motion Normal Left Ventricular systolic function Normal Left Ventricular systolic function LEFT MAIN: Angiographically normal LEFT ANTERIOR DESCENDING ARTERY: Angiographically normal CIRCUMFLEX ARTERY: Angiographically normal RIGHT CORONARY ARTERY: Angiographically normal COMPLICATIONS No Complications PROCEDURE MEDICATIONS Versed 1 mg IV Fentanyl 50 mcg IV Oxygen: 2 L/min via nasal cannula Heparin given IA 04/06/2023 13:03:05 Verapamil 2.5mg, 3000 units of Heparin given IA 04/06/2023 13:03:05 SUMMARY OF HEMODYNAMIC DATA Time AIR REST ECG 12:47:14 Art 120/55 (76) 13:07:01 AO 129/67 (94) SA 13:11:22 LV 113/5, 14 13:15:31 LV 119/4, 12 13:15:37 LV 114/4, 12 13:16:04 LVp 115/3, 12 13:16:08 AOp 112/0 (80) 13:16:13 Signed By Omero Arias MD On 04/06/2023 16:41:33 Omero Arias MD
[2023-04-06] MEDS: Acetaminophen 325 MG Tablet 650 MG PO (16:47)
== END 2023-04-06 17:38 | disposition home or self-care (01) | DRG 392 ==
LOC: ED 08:01 → PCU 10:12
PROVIDERS: Admitting Provider Internal Medicine; Emergency Provider Emergency Medicine; PCP Student in an Organized Health Care Education/Training Program; Visit Provider Internal Medicine
DX: R07.89 Other chest pain (principal); K21.9 Gastro-esophageal reflux disease without esophagitis; E03.9 Hypothyroidism, unspecified; I10 Essential (primary) hypertension; E78.5 Hyperlipidemia, unspecified; Z79.890 Hormone replacement therapy; Z79.899 Other long term (current) drug therapy; R06.02 Shortness of breath
CPT/HCPCS: 71045; 71275; 80048; 84484; 85025; 85610; 85730; 93005; 93306; 93458; 96361; 96365; 96366; 96375; 96376; 99152; 99153; 99221; 99284; J7030; J7040; Q9967; A4216; C1769; C1894; G0378; J2405

== ENCOUNTER 2024-03-21 14:01 | Emergency (ER) | payer MEDICARE, SELFPAY ==
[2024-03-21 14:02] VITALS: BP 145/79; PULSE 75; RESP 16; TEMP 36.6; O2SAT 96; BMI 30.2
--- NOTE | 2024-03-21 14:19 | CT_ITS ---
EXAM: CT ABDOMEN AND PELVIS WITH INTRAVENOUS CONTRAST CLINICAL INDICATION: pain TECHNIQUE: Helically acquired images were obtained of the abdomen and pelvis with intravenous contrast. This CT exam was performed using one or more of the following dose reduction techniques: automated exposure control, adjustment of the mA and/or kV according to patient size, and/or use of iterative reconstruction technique. CONTRAST: IV 100mL Isovue-300 COMPARISON: No relevant prior studies available. FINDINGS: LOWER THORAX: Normal. Lung bases are clear. No cardiomegaly. No pericardial effusion. ABDOMEN: LIVER: Mild hepatic steatosis. GALLBLADDER AND BILE DUCTS: Cholecystectomy noted. Prominence of the common bile duct within the range of normal for postcholecystectomy patient. PANCREAS: Normal. No focal cystic or solid mass. SPLEEN: Normal. Normal size without focal cystic or solid mass. ADRENALS: Normal. No nodules. KIDNEYS AND URETERS: 2.5 cm simple appearing right renal cyst. No specific follow-up indicated. Normal renal size and position. No hydronephrosis. STOMACH AND BOWEL: Diverticulosis of the colon noted without evidence of acute diverticulitis. PELVIS: APPENDIX: Appendix is visualized and normal in appearance. BLADDER: Normal. REPRODUCTIVE: Hysterectomy noted. ABDOMEN and PELVIS: INTRAPERITONEAL SPACE: Normal. No ascites or other fluid collection. No free air. BONES/JOINTS: No suspicious lytic or blastic abnormality. SOFT TISSUES: Small fat-containing umbilical hernia is present. VASCULATURE: Normal. Abdominal aorta is non-dilated. LYMPH NODES: Normal. No enlarged lymph nodes. CT/Abdomen/Pelvis W IV Cont ONLY IMPRESSION: 1. Mild steatosis. 2. Diverticulosis coli. Electronically Signed: Scott Hines MD at 15:34 EDT ,
--- NOTE | 2024-03-21 14:24 | ED.VIS.GI ---
HPI HPI - GI History of Present Illness Chief Complaint: Abd Pain Informant: patient and spouse/S.O. Narrative Narrative: Increased abdominal pain over 3 days. States have bloating extensive gas. She has been using Gas-X. First day had 1 emesis that came right back down. Pain has continued. Today had diarrhea nonbloody. Cholecystectomy [address] Campbell. She had hysterectomy with a bladder lift April 2023 through [facility]. She has had a bowel obstruction years ago. Denies fever or chills. Denies urinary symptoms. History of pancreatitis. Denies any extensive alcohol. She was seen by her primary care office and sent here for evaluation. [facility] Medical History Anxiety Bladder prolapse Bladder incontinence Seasonal allergies Genital herpes Arthritis Hypothyroidism Hyperlipidemia Home Medications ?Medication ?Instructions ?Recorded ?Last Taken ?Type rosuvastatin 5 mg tablet 5 mg PO DAILY 12/09/13 04/05/23 History Synthroid 88 mcg PO DAILY 08/05/19 04/05/23 History acyclovir 200 mg capsule 200 mg PO TID PRN PRN 08/05/19 Unknown History acyclovir 5 % topical ointment 1 applic topical 6XD PRN PRN 08/05/19 Unknown History (Zovirax) celecoxib 200 mg capsule (Celebrex) 200 mg PO BID PRN Pain Or Fever 08/05/19 Unknown History alprazolam 0.25 mg tablet 0.25 mg PO QHS PRN sleep 04/06/23 04/05/23 History amlodipine 5 mg tablet 5 mg PO DAILY 30 days #30 tabs 04/06/23 Unknown Rx azelastine 137 mcg (0.1 %) nasal 1 spray intranasal Q12H 04/06/23 04/05/23 History spray epinephrine 0.3 mg/0.3 mL 0.3 mg IM Q1H PRN anaphylaxis 04/06/23 Unknown History injection, auto-injector pantoprazole 40 mg tablet,delayed 40 mg PO DAILY 30 days #30 tabs 04/06/23 Unknown Rx release hyoscyamine sulfate 0.125 mg 0.125 mg PO Q8H PRN abdominal pain 03/21/24 Unknown Rx tablet (Levsin) #20 tabs ondansetron 4 mg disintegrating 4 mg PO Q8H PRN PRN Nausea #10 tabs 03/21/24 Unknown Rx tablet Allergy/AdvReac Type Severity Reaction Status Date / Time No Known Allergies Allergy Verified 03/21/24 14:05 Family History Father Heart disease Prostate cancer Surgical History History of bladder suspension procedure S/P cholecystectomy Status post breast reduction S/P tubal ligation S/P sinus surgery Social History Smoking Status: Never smoker alcohol intake: current details: occasionally substance use type: does not use caffeine: Yes what type of physical activity do you participate in: walking additional social history: -[facility] ED Constitutional Constitutional ED: Denies chills, fever(s) or sweats Eyes Eyes: Denies change in vision ENT ENT ED: Denies dysphagia or sore throat Cardiovascular Cardiovascular: Denies chest pain, leg edema, palpitations or racing heartbeat Respiratory/Chest Respiratory/Chest: Denies cough, dyspnea or dyspnea on exertion Gastrointestinal Gastrointestinal: Reports abdominal pain, diarrhea and nausea; Denies vomiting Genitourinary Genitourinary ED: Denies dysuria, hematuria or urinary frequency Musculoskeletal Musculoskeletal: Denies back pain, extremity pain or neck pain Integumentary Denies rash or wounds Neurologic Neurologic: Denies headache(s), paresthesias or weakness EXAM Physical Exam Const Vital Signs: 03/21/24 14:02 Temperature 98 F Temperature Source Oral Pulse Rate 75 Respiratory Rate 16 Blood Pressure 145/79 H Blood Pressure Mean 101 Pulse Ox 96 Oxygen Delivery Method Room Air Positive well nourished and well developed General Appearance ED: well developed and NAD HEENT Reports moist mucous membranes normocephalic and atraumatic Eyes EOMs intact bilaterally and conjunctivae normal General Eye ED: Yes normal appearance of both eyes Neck no lymphadenopathy and supple General: Negative for tenderness Chest Wall Chest: Negative for tenderness Resp normal respiratory effort and normal air movement Effort and Inspection: symmetric chest movement; Negative for respiratory distress Cardio regular rate, regular rhythm and no murmurs Peripheral Pulses: pulses 2+ throughout GI normal to inspection, nondistended, normoactive bowel sounds GI Narrative: Tender right upper quadrant region and mid abdomen. bowel sounds are present. No significant extension however patient reports more distended than typical. Palpation: Negative for guarding or rebound tenderness present Back/Spine no CVA tenderness and no thoracic nor lumbar tenderness Extremity normal to inspection General Extremety ED: Negative for edema or tenderness General Extremity: Negative for edema Neuro oriented x3 and no sensory deficits noted Sensorium / Orientation: awake and alert Skin no rashes or lesions noted and no wounds MDM MDM MDM Narrative Medical decision making narrative: Interventions / MDM: Differential diagnosis: Abdominal pain, diarrhea Diagnosis considered but do not suspect: Bowel obstruction, appendicitis, colitis, pancreatitis however CT negative. My EKG interpretation: N/A Imaging independently reviewed and interpreted by myself: CT abdomen pelvis IV contrast: No acute process. External documents reviewed: N/A Test considered but not ordered:N/A ED course: Vital stable tender more right upper quadrant with cholecystectomy in the past. Reporting increasing distention and gas improving with flatus. Diarrhea today. With her reported history concerns for bowel obstruction at least partial. However abdominal labs will be obtained for further evaluation of her pancreas and potential common bile duct. Fluids started, Zofran and morphine for symptom control. 1545: Labs are all normal including lipase. Urine negative. CT scan normal appendix no signs of colitis or bowel obstruction. Clinically is feeling better soft abdomen on reevaluation. On my evaluation there was slight air in her bowels with stools. No air-fluid levels. Nonspecific abdominal pain at this time. She will monitor symptoms. She is placed on Levsin help with symptom Zofran to use as needed. She continue oral fluids at home. She will monitor symptoms. Discussed signs and symptoms to return. All questions were answered. Re-evaluation: stable Disposition discussed with patient/family/significant other: Patient and significant other Case discussed with consulting clinician: N/A This note was generated with [employer] dictation software. It may contain incorrect words, spelling, and punctuation that were not noted in checking the note before signing. Lab Data Attestation: I reviewed the patient's lab results. Labs: Laboratory Results - last 24 hr 03/21/24 14:30 WBC 9.2 RBC 5.97 H Hgb 15.6 H Hct 47.7 H MCV 79.9 L MCH 26.1 L MCHC 32.7 RDW Std Deviation 37.3 RDW Coeff of Greg 13.1 Plt Count 337 MPV 8.7 Immature Gran % (Auto) 0.200 Neut % (Auto) 53.7 Lymph % (Auto) 34.1 Placer % (Auto) 9.1 Eos % (Auto) 2.4 Baso % (Auto) 0.5 Absolute Neuts (auto) 5.0 Absolute Lymphs (auto) 3.14 Nucleated RBC % 0 Sodium 137 Potassium 3.6 Chloride 104 Carbon Dioxide 26.0 Anion Gap 8 BUN 10 Creatinine 0.90 Estim Creat Clear Calc 56.72 Est GFR (MDRD) Af Amer 80 Est GFR (MDRD) Non-Af 66 BUN/Creatinine Ratio 11.1 Glucose 99 Calcium 10.1 Total Bilirubin 0.40 Direct Bilirubin 0.14 AST 22 ALT 28 Alkaline Phosphatase 82 Total Protein 8.7 H Albumin 4.4 Globulin 4.3 H Lipase 57 Urine Color Yellow Urine Clarity Clear Urine pH 6.5 Ur Specific Hazel 1.010 Urine Protein Negative Urine Glucose (UA) Normal Urine Ketones Negative Urine Occult Blood Negative Urine Nitrite Negative Urine Bilirubin Negative Urine Urobilinogen Normal Ur Leukocyte Esterase Negative Urine RBC 0 SEEN Urine WBC 0 SEEN Ur Squamous Epith Cells 0-5 SEEN Urine Bacteria 0 SEEN Urine Mucus 0 SEEN Radiography Diagnostic Testing: Clinical Impression(s) from Imaging Studies Abdomen/Pelvis CT 03/21/24 14:19 IMPRESSION: 1. Mild steatosis. 2. Diverticulosis coli. Electronically Signed: Scott Hines MD at 15:34 EDT Reading Location ID and State: [address] [place] [address] Tel , Service support , Discharge Plan Triage Chief Complaint: Abd Pain ED Provider: Nickolas Felipe Dx/Rx/DC Orders Clinical Impression: Abdominal pain, Diarrhea, Renal cyst, right Instructions: Abdominal Pain Prescriptions: New hyoscyamine sulfate [Levsin] 0.125 mg tablet 0.125 mg PO Q8H PRN (Reason: abdominal pain) Qty: 20 0RF ondansetron 4 mg tablet,disintegrating 4 mg PO Q8H PRN PRN (Reason: Nausea) Qty: 10 0RF No Action celecoxib [Celebrex] 200 mg capsule 200 mg PO BID PRN (Reason: Pain Or Fever) acyclovir 200 mg capsule 200 mg PO TID PRN (Reason: PRN) acyclovir [Zovirax] 5 % ointment 1 applic TOPICAL 6XD PRN (Reason: PRN) Synthroid 75 MCG tablet 88 mcg PO DAILY Patient Comments: THYROID COND. rosuvastatin 5 MG tablet 5 mg PO DAILY epinephrine 0.3 mg/0.3 mL auto-injector 0.3 mg IM Q1H PRN (Reason: anaphylaxis) azelastine 137 mcg (0.1 %) aerosol,spray 1 spray INTRANASAL Q12H alprazolam 0.25 mg tablet 0.25 mg PO QHS PRN (Reason: sleep) amlodipine 5 mg Tablet 5 mg PO DAILY 30 Days Qty: 30 0RF pantoprazole 40 mg Tablet,Delayed Release (Dr/Ec) 40 mg PO DAILY 30 Days Qty: 30 0RF Primary Care Provider: Mark Vergara Referrals: Mark Vergara DO [Primary Care Provider] - Activity Restrictions/Additional Instructions: Abdominal labs are all normal. Urine was negative for infection. CT scan incidental finding of right renal cyst. Normal appendix. This is no signs of pancreatitis. No signs of bowel obstruction. Continue oral fluids for hydration. Use medication as prescribed. Follow-up with your GI doctor. You develop worsening symptoms not controlled with medications, return to the ED for reevaluation. Print Language: Kiswahili Disposition Disposition: Home, Self Care
[2024-03-21] MEDS: Ondansetron 4 MG/2 ML Vial IV (14:28)
[2024-03-21] MEDS: Morphine 4 MG/ML Syringe IV (14:29)
[2024-03-21] MEDS: 0.9% Normal Saline (1000mL) 1,000 ML 125 ML IV (14:32)
[2024-03-21 14:42] LABS: Bacteria 0 SEEN /hpf (None Seen); Mucous, Urine 0 SEEN /hpf (<or=2+); Red Blood Cells-Urine 0 SEEN /hpf (0-5); White Blood Cells 0 SEEN /hpf (0-5)
[2024-03-21 14:49] LABS: Absolute Lymphocyte Count 3.14 X10^3/uL (0.83-4.51); Basophil# 0.05 X10^3/uL; Basophil% 0.5 % (0-1); Eosinophil# 0.22 X10^3/uL; Eosinophils% 2.4 % (0-5); Hematocrit 47.7 % (37-47); Hemoglobin 15.6 g/dL (12.0-15.0); Lymphocyte # 3.14 X10^3/ul (0.83-4.51); Lymphocyte % 34.1 % (19-41); Mean Corp Hgb Conc 32.7 g/dL (32-36); Mean Corpuscular Hgb 26.1 pg (27.0-32.0); Mean Corpuscular Volume 79.9 fL (81-99); Mean Platelet Vol. 8.7 fl (6.2-12.0); Monocyte# 0.84 X10^3/uL; Monocyte% 9.1 % (0-10); NRBC Flagged by Analyzer 0 % (0-5); Neutrophil # 4.95 X10^3/uL (2.7-7.7); Neutrophil % 53.7 % (47-70); Platelet Count 337 K/mm3 (150-450); RBC Distribution Width CV 13.1 % (11.6-14.6); RBC Distribution Width SD 37.3 fl (35.1-43.9); Red Blood Count 5.97 M/mm3 (4.2-5.4); White Blood Count 9.2 K/mm3 (4.4-11.0)
[2024-03-21 14:52] LABS: Color, Urine Yellow (Yellow); Glucose, Dipstick Normal (Normal); Ketone-Dipstick Negative (Negative); Leukocyte Esterase-Dipstick Negative /ul (Negative); Nitrite-Dipstick Negative (Negative); Occult Blood-Urine Negative /ul (Negative); Protein-Dipstick Negative (Negative); Urine Bilirubin Dipstick Negative (Negative); Urine Clarity Clear (Clear); Urine Urobilinogen Normal (Normal); Urine pH 6.5 (5.0 - 8.0)
[2024-03-21 14:57] LABS: Squamous Epithelial Cells - UA 0-5 SEEN /hpf (5-10)
[2024-03-21 15:01] LABS: AST(SGOT) 22 U/L (15-37); Alanine Aminotransfer ALT/SGPT 28 U/L (13-56); Albumin, Serum 4.4 g/dL (3.2-5.0); Alkaline Phosphatase 82 U/L (45-117); Anion Gap 8 (5-15); BUN 10 mg/dL (7-18); BUN/Creat Ratio 11.1 RATIO (10-20); Bilirubin, Direct 0.14 mg/dL (0.00-0.30); Calcium,Total 10.1 mg/dL (8.5-10.1); Chloride 104 mmol/L (98-107); EST Glomerular Filtration Rate 66 mL/min (>60); Est Glom Filt Rate - Afr Amer 80 mL/min (>60); Estimated Creatinine Clearance 56.72 ml/min; Globulin 4.3 g/dL (2.2-4.2); Glucose 99 mg/dL (74-106); Lipase 57 U/L (13-75); Potassium 3.6 mmol/L (3.5-5.1); Protein, Total 8.7 g/dL (6.4-8.2); Sodium Level 137 mmol/L (136-145)
[2024-03-21 16:01] VITALS: BP 136/62; PULSE 71; RESP 16; O2SAT 99
[2024-03-21 16:05] VITALS: BP 136/62; PULSE 71; RESP 16; TEMP 36.5; O2SAT 99
== END 2024-03-21 16:06 | disposition home or self-care (01) ==
PROVIDERS: Emergency Provider Emergency Medicine; PCP Student in an Organized Health Care Education/Training Program; Visit Provider Emergency Medicine
DX: R10.11 Right upper quadrant pain (principal); R19.7 Diarrhea, unspecified; N28.1 Cyst of kidney, acquired; E78.5 Hyperlipidemia, unspecified; E03.9 Hypothyroidism, unspecified; Z90.49 Acquired absence of other specified parts of digestive tract; Z79.890 Hormone replacement therapy; Z79.899 Other long term (current) drug therapy
CPT/HCPCS: 74177; 80048; 80076; 81001; 83690; 85025; 96361; 96374; 96375; 99283; J7030; Q9967; A4216; J2405

== ENCOUNTER 2025-01-27 10:30 | Outpatient (RCR) | payer MEDICARE, SELFPAY ==
--- NOTE | 2025-01-14 16:52 | HP.PTEVAL_ITS ---
Patient's Visit Information Visit Information Visit Information: SHANTELL JACKSON is a 70 year old F referred to Physical Therapy by DELORIS Velazquez with a diagnosis of R TKA 12/02/24. Date of Evaluation: 01/14/25 Physical Therapist: Manuel Merritt, PT, ATC Visit Plan Frequency: 2-3x /Week Duration: 4-6 Weeks Plan: R knee PrOM/mobs, stretching and strengthening, balance and proprio, core stab ex's, bike, and HEP Subjective Subjective: DOS: 12/02/24. Pt had a R TKA performed at that time. Pt notes she had home health for a few weeks which was really helpful. Pt also notes she decided to go to outpatient PT at the [facility] after home health, but was not happy with her results. Pt has chosen to come here now in an attempt to gain more ROM and strength. Pt denies tingling or numbness at this time other than surrounding the praveen incisional area. Pt notes she is able to sleep at night as long she takes 800 MG Ibuprophen. Pt is retired at this time. Pt reports she likes to go on walks at night, but is unable to walk for prolonged periods at this time secondary to pain and fatigue. Pt reports she has been performing her HEP with her daily, but thinks she needs to come here and get pushed a little harder. Pt has stairs to her basement for her laundry, which she has to negotatie one step at a time occasionally. Pain R TKA: Pain Intensity (Out of 10): 2 Pain Intensity Range: 6 Objective Objective: Neuro: B LE sensation is WNL to light touch ROM: L knee 0-142 degrees; R knee 0-10-95 degrees MMT: L knee flex= 33, ext= 27 #F; R knee flex= 7, ext= 20 #F Gait: Pt is able to ambulate greater than 150 feet without deviation or AD this date. TU sec Balance/Special Test Scores Lower Extremity Functional Score: 47 Goals Goal 1:: Decrease R knee pain x 50% to aid with sleep Goal Time Frame: 4-6 Weeks Goal 2:: Increase R knee flex ROM to 120 degrees to aid with restoring a more normalized gait pattern Goal Time Frame: 4-6 Weeks Goal 3:: Increase R knee strength to equal 90% of L knee strength to aid with stair negotiation Goal Time Frame: 4-6 Weeks Goal 4:: I with HEP Goal Time Frame: 4-6 Weeks Rehabilitation Potential Physical Therapy Diagnosis: Pt has R knee pain, weakness, and limited ROM secondary to R TKA Rehabilitation Potential: Good Anticipated Interventions Patient/Client Instruction: Educate patient on: Condition and Plan of Care For the Purpose of:: To improve self management Therapeutic Exercise to Include: Strength training, Endurance training, Balance training, Flexibilty training, Gait and locomotor training, Passive ROM, Active ROM and Dynamic Lumbar Stabilization For the Purpose of:: To decrease pain, To increase ROM and To improve muscle performance and motor function Cryotherapy (ice pack, ice massage): Yes For the Purpose of:: To decrease pain Text: Thank you for the opportunity to evaluate your patient. For Medicare and Medicare HMO plans, please review the plan of care and approve it. It will need to be FAXED BACK to us at [phone] for Medicare purposes. For Medicare only, by signing this I certify the plan of care. Please let me know if there are questions or concerns regarding this plan of care. Physician Signature: Date:
--- NOTE | 2025-01-27 11:06 | HP.PTDCSUM_ITS ---
Discharge Summary D/C summary: It has been my pleasure to treat SHANTELL JACKSON referred by DELORIS Velazquez, with the diagnosis of R TKA 12/02/24 for a total of 5 visit(s). Discharge Date: Please see the following information for a summary of their discharge status. Subjective Subjective: was very pleased Pain R TKA: Pain Intensity (Out of 10): 1 Overall Improvement % Improvement: 80 Objective Objective/Function: Pt is now I with gym routine Goals Goal 1:: Decrease R knee pain x 50% to aid with sleep Goal 2:: Increase R knee flex ROM to 120 degrees to aid with restoring a more normalized gait pattern Goal 3:: Increase R knee strength to equal 90% of L knee strength to aid with stair negotiation Goal 4:: I with HEP Plan Plan: Discharge to gym routine D/C Information d/c sentence: If there are questions or concerns regarding this patient's physical therapy, pl ease feel free to call me at [phone]. Thank you for the referral of this patient. Sincerely, Manuel Merritt, PT, ATC Balance/Gait/Functional tests Balance/Special Test Scores Lower Extremity Functional Score: 47 Improvement % Improvement: 80
--- NOTE | 2025-04-01 11:21 | HP.PT.NRP ---
Patient Information Patient Information: SHANTELL JACKSON was seen in my office for initial evaluation on 01/14/25. The following Plan of Care was established for this patient: POC Established Initial Frequency: 2-3x /Week Initial Duration: 4-6 Weeks Anticipated Interventions Patient/Client Instruction: Educate patient on: Condition and Plan of Care For the Purpose of:: To improve self management Therapeutic Exercise to Include: Strength training, Endurance training, Balance training, Flexibilty training, Gait and locomotor training, Passive ROM, Active ROM and Dynamic Lumbar Stabilization For the Purpose of:: To decrease pain, To increase ROM and To improve muscle performance and motor function Cryotherapy (ice pack, ice massage): Yes For the Purpose of:: To decrease pain Last Seen Last Seen: This patient was last seen in our office . Pertinent comments regarding their Physical therapy will appear below: Pt has not returned for greater than 30 days and is discontinued at this time. At this point I will be discontinuing this patient from physical therapy. I would be happy to see this patient again in the future if found appropriate by the physician. Thank you! Manuel Merritt, PT, ATC Balance/Gait/Functional tests Balance/Special Test Scores Lower Extremity Functional Score: 47
== END 2025-01-27 19:00 | disposition home or self-care (01) ==
LOC: PT 10:30
PROVIDERS: PCP Student in an Organized Health Care Education/Training Program; Visit Provider Physician Assistant Surgical
DX: Z96.651 Presence of right artificial knee joint (principal); Z47.1 Aftercare following joint replacement surgery
CPT/HCPCS: 97110; 97140; 97161